=== PATIENT | male | born 1970 | race Caucasian/White ===

== ENCOUNTER → 2020-06-04 17:47 | Outpatient (CLI) | payer OTHER, SELFPAY ==
--- NOTE | 2020-06-04 17:52 | DI.MRI.S_ITS ---
PROCEDURE: MR SHOULDER RT WO CON INDICATIONS: RIGHT SHOULDER PAIN TECHNIQUE: Noncontrast oblique coronal T2 fast spin echo with fat saturation, oblique sagittal T1 spin echo and T2 fast spin echo with fat saturation, axial T1 spin echo and T2 fast spin echo with fat saturation through the shoulder. COMPARISON: None. FINDINGS: Image quality: Excellent. Rotator cuff: Supraspinatus tendinopathy with low-grade bursal and articular surface fraying. Infraspinatus tendinopathy also noted. Teres minor appears grossly intact. There is subscapularis tendinopathy and low-grade partial-thickness articular sided tear. No atrophy of the rotator cuff muscles. Bones and bursae: No bone marrow contusions or fractures. Severe hypertrophic acromioclavicular joint degeneration. Mild glenohumeral degenerative joint disease. Lateral downsloping appearance of the acromion. Acromion demonstrates conventional anatomy, without an os acromiale. Mild subacromial-subdeltoid bursitis. Capsule and soft tissues: Labrum: Ill-defined circumferential labral tear, with associated chronic segmental glenoid rim sclerosis and spurring at the posterosuperior aspect. No definite posterior subluxed appearance of the humeral head relative to the glenoid to suggest microinstability. Long head of the biceps tendon intact. The rotator interval appears normal, without fibrosis. Coracohumeral ligament intact. IMPRESSION: Supraspinatus tendinopathy with low-grade bursal and articular surface fraying Infraspinatus tendinopathy Subscapularis tendinopathy and low-grade partial-thickness articular sided tear. Mild subacromial-subdeltoid bursitis Chronic circumferential labral tear Lateral downsloping appearance of the acromion. Dictated by: Mich Nichols M.D. on 06/07/2020 at 8:26 Approved by: Mich Nichols M.D. on 06/07/2020 at 8:35
== END ==
PROVIDERS: Referring Provider Family Medicine; Visit Provider Family Medicine
DX: M25.511 Pain in right shoulder (principal); M75.111 Incomplete rotator cuff tear or rupture of right shoulder, not specified as traumatic; M75.51 Bursitis of right shoulder; S43.491A Other sprain of right shoulder joint, initial encounter
CPT/HCPCS: 73221

== ENCOUNTER 2021-09-06 10:27 | Day surgery (SDC) | payer OTHER, SELFPAY ==
[2021-09-06 11:07] VITALS: BP 139/87; PULSE 66; RESP 18; TEMP 37.2; O2SAT 97; BMI 21.2
[2021-09-06 11:16] LABS: COVID19 -Nasal RAPID Negative (Negative)
[2021-09-06] MEDS: LACTATED RINGERS 1,000 ML 200 ML IV (11:17)
--- NOTE | 2021-09-06 11:27 | PM.HP.1 ---
History of Present Illness History of Present Illness Date Patient Seen: 09/06/21 Time Patient Seen: 11:27 Chief complaint: SDC Narrative: The patient presents for colorectal screening. They have never had any previous examination for such. No personal or family history of colon cancer. He had been previously seen proximally years for diarrhea and unintentional weight loss this is subsequently resolved. He has regained the weight no further diarrhea. Patient History Medical History Diabetes Hypercholesteremia Surgical History H/O wrist surgery Family & Social History Social History: household members spouse Tobacco & Substance use: Smoking Status Never smoker alcohol intake current alcohol intake frequency 0-2 drinks per day Substance Use Type marijuana Meds Home Medications and Allergies Home Medications Medication Instructions Recorded Confirmed Type sodium,potassium,mag sulfates 17.5 See Rx Instructions PO .COMPLEX 12/23/20 Rx gram-3.13 gram-1.6 gram oral soln #354 ml (Suprep Bowel Prep Kit) insulin lispro 100 unit/mL 09/06/21 History subcutaneous solution (Humalog U-100 Insulin) pravastatin 40 mg tablet 40 mg PO DAILY 09/06/21 09/06/21 History Allergies Allergy/AdvReac Type Severity Reaction Status Date / Time No Known Drug Allergies Allergy Verified 09/06/21 11:02 Exam Vital Signs (past 8 hours): - 09/06/21 11:07 Temperature 98.9 F Pulse Rate 66 Respiratory Rate 18 Blood Pressure 139/87 Pulse Oximetry 97 Oxygen Delivery Method Room Air Narrative Exam Narrative: General adult male alert oriented no acute distress Chest nonlabored respirations Abdomen soft nontender Extremities warm well perfused Objective Labs Labs: Laboratory Results - last 24 hr 09/06/21 10:53 SARS-CoV-2 (PCR) Negative Assessment & Plan Assessment & Plan narrative: The patient requires colorectal screening and colonoscopy is recommended. Technical details were discussed. Risks, benefits, alternatives explained. Risks including but not limited to myocardial infarction, aspiration, bleeding, pain, missed lesion, incomplete examination, need for further radiographic studies, colonic perforation, and need for major abdominal surgery were discussed. All questions were answered to their satisfaction, and they are in agreement with this plan. Time Spent With Patient Critical Care time: I spent a total of [] minutes of critical care time on this patient's care today; this time is exclusive of procedural time.
[2021-09-06] MEDS: MIDAZOLAM 5 MG/5 ML VIAL 4 MG IV (11:41)
[2021-09-06] MEDS: fentaNYL 250 MCG/5 ML INJ 100 MCG IV (11:41)
--- NOTE | 2021-09-06 11:56 | P.OP.COLON_ITS ---
Operative Date/Time/Diagnoses Date of procedure: 09/06/21 Time of procedure: 11:57 Pre-op diagnosis: screening Post-op diagnosis: same Procedure & Clinicians Study performed: colonoscopy Same procedure as scheduled: Yes Indications: Screening Surgeon: Mik Comer Procedure Notes Procedure in detail: Medications: Conscious sedation using 4mg IV midazolam and 100mcg IV of fentanyl The history and physical was performed/updated and the patient is ASA class is 2. The procedure was discussed in detail with the patient. Potential risks complications including infection, bleeding, missed diagnosis, perforation, need for surgery, and were explained. Their questions were answered and informed consent was obtained. Patient was brought to the procedure room and placed standard monitoring equipment. The patient's vital signs were monitored continuously throughout the entire procedure. Prior to starting time-out was performed. The patient was placed in the left lateral recumbent position. Procedural sedation was adminis tered. Examination began with a thorough inspection of the perianal area there was no evidence of fissures, fistulae, external hemorrhoids or cutaneous malignancy. The colonoscopy scope was then placed into the anal canal and was advanced to the cecum, which was identified by the ileocecal valve, the appendiceal orifice and the confluence of the taenia. The scope was then slowly withdrawn examining colon thoroughly in all directions, irrigating it of any residual stool. FINDINGS 1. No masses or polyps 2. Normal healthy colon The patient tolerated the procedure well. They will be discharged once criteria are met. The prep was of good/excellent quality. The withdrawl time was 6 minutes. The sedation time was 14 minutes. Specimen(s): none sent Complications: none Impression: Normal colonoscopy Post-procedure Recommendations: Colonoscopy in 10 years Disposition: same day surgery
[2021-09-06 12:00] VITALS: BP 122/80; PULSE 67; RESP 12; TEMP 36.4; O2SAT 96
[2021-09-06 12:05] VITALS: BP 122/79; BP 134/84; PULSE 64; PULSE 66; RESP 11; RESP 12; O2SAT 94; O2SAT 97
[2021-09-06 12:10] VITALS: BP 127/81; PULSE 71; RESP 14; TEMP 37.1; O2SAT 99
[2021-09-06 12:15] VITALS: BP 122/79; PULSE 64; RESP 13; O2SAT 97
[2021-09-06 12:25] VITALS: BP 124/89; PULSE 68; RESP 17; TEMP 36.8; O2SAT 99
== END 2021-09-06 12:40 | disposition home or self-care (01) ==
PROVIDERS: PCP Physician Assistant Medical; Referring Provider Surgery; Visit Provider Surgery
PROC: 0DJD8ZZ Inspection of Lower Intestinal Tract, Via Natural or Artificial Opening Endoscopic (ICD-10-PCS; CPT 45378; principal; 2021-09-06 11:45)
DX: Z12.11 Encounter for screening for malignant neoplasm of colon (principal); E11.9 Type 2 diabetes mellitus without complications; Z79.4 Long term (current) use of insulin; Z20.822 Contact with and (suspected) exposure to COVID-19
CPT/HCPCS: 45378; 87635; 99152; C9803; J2250; J3010